=== PATIENT | female | born 1990 | race Two or more races ===

== ENCOUNTER 2021-01-01 10:28 | Emergency (ER) | payer MEDICAID ==
[~2021-01-01] VITALS: Ht 170.2 cm; Wt 72.6 kg
[2021-01-01 10:58] LABS: Basophils # (auto) 0 10 ^3/uL (0-0.2); Eosinophils # (auto) 0 10 ^3/uL (0-0.8); Hemoglobin 9.6 g/dL (12.2-16.2); Monocytes # (auto) 0.2 10 ^3/uL (0-1.3); White Blood Cell 3.8 10^3/uL (4.4-10.8)
[2021-01-01 10:59] LABS: Basophils % (auto) 0.7 % (0.0-2.0); Eosinophils % (auto) 0.1 % (0.0-7.0); Hematocrit 30.8 % (36.0-46.0); Lymphocytes # (auto) 0.6 10 ^3/uL (0.4-5.4); Lymphocytes % (auto) 16.7 % (10.0-50.0); Mean Corpuscular Hemoglobin 24.8 pg (28.0-32.0); Mean Corpuscular Hgb Conc. 31.2 g/dL (32.0-36.0); Mean Corpuscular Volume 79.5 fL (80.0-100.0); Monocytes % (auto) 5.1 % (0.0-12.0); Neutrophils % (auto) 77.4 % (37.0-80.0); Nucleated Red Blood Cells % 0.3 %; Platelet Count (auto) 272 10^3/uL (140-450); Red Blood Cells 3.88 10^6/uL (4.0-5.20); Red Cell Distribution Width 17.6 % (11.8-14.3)
[2021-01-01 11:08] LABS: Urine Bacteria NONE SEEN /hpf (None Seen); Urine Blood Negative /uL (Negative); Urine Mucus FEW (None Seen); Urine Specific Gravity 1.024 (1.001-1.035); Urine WBC 1 /hpf (0 - 5)
[2021-01-01 11:11] LABS: Calcium 9.5 mg/dL (8.5-10.1)
[2021-01-01 11:15] VITALS: BP 126/95
[2021-01-01 11:16] LABS: BUN/Creatinine Ratio 13.2; Bilirubin, Total 1.8 mg/dL (0.2-1.0); Total Protein 8.2 g/dL (6.4-8.2)
[2021-01-01] MEDS ORDERED: PRAZ1CAP48 PO (12:02)
[2021-01-01] MEDS ORDERED: VENL75TA2 PO (12:02)
[2021-01-01] MEDS ORDERED: GAB100C PO (12:02)
[2021-01-01] MEDS ORDERED: QUET25TA46 PO (12:02)
[2021-01-01] MEDS ORDERED: GABA-339 PO (12:02)
[2021-01-01] MEDS ORDERED: HYDROcodone-ACET 5/325MG TAB PO ONE (13:00)
[2021-01-01] MEDS ORDERED: ONDANSETRON ODT 4 MG TAB PO ONE (13:00)
== END 2021-01-01 13:19 | disposition home or self-care (01) ==
LOC: ER 10:28
DX: N20.0 Calculus of kidney (principal)
CPT/HCPCS: 36415; 74176; 80053; 81001; 82150; 83605; 83690; 84702; 85025; 99284; Q0162

== ENCOUNTER 2021-02-07 07:38 | Emergency (ER) | payer MEDICAID ==
[~2021-02-07] VITALS: Ht 170.2 cm; Wt 68.0 kg
[~2021-02-07 07:38] MED LIST: GAB100C PO; GABA-339 PO; PRAZ1CAP48 PO; QUET1TAB11 PO; VENL1TAB99 PO
[2021-02-07 07:41] VITALS: BP 143/89
[2021-02-07 08:27] LABS: Urine Bacteria NONE SEEN /hpf (None Seen); Urine Blood Negative /uL (Negative); Urine Specific Gravity 1.015 (1.001-1.035); Urine WBC 1 /hpf (0 - 5)
[2021-02-07] MEDS ORDERED: KETOROLAC TROMETH 60MG/2ML VIAL IM ONE (09:30)
== END 2021-02-07 10:01 | disposition home or self-care (01) ==
LOC: ER 07:38
DX: N20.0 Calculus of kidney (principal); M54.5 Low back pain
CPT/HCPCS: 74176; 81001; 81025; 96372; 99284; J1885